=== PATIENT | female | born 1995 | race Caucasian/White ===

== ENCOUNTER 2019-01-31 13:41 | Emergency (ER) | payer MEDICAID ==
[~2019-01-31] VITALS: Ht 165.1 cm; Wt 85.7 kg
--- NOTE | 2019-01-31 14:03 | NUR ---
PT AMBULATED TO BED 12.
[2019-01-31 14:05] VITALS: BP 112/81
--- NOTE | 2019-01-31 14:05 | NUR ---
PT C/O HAVING ITCHY RASH FOR ONE MONTH. THE RASH STARTED ON HER THIGHS BILATERAL, AND RADIATING TO ABDOMEN, LEGS, AND FEET. ERYTHMATOUS RASH/HIVES NOTICED ON PT'S LEGS BILATERAL. DENIES ANY PAIN AT THIS TIME. PT DENIES HAVING ALLERGIES TO ANY MEDS OR FOOD. REPORTS FEVER AND HEADACHE LAST NIGHT, AFEBRILE NOW. PATIENT STATES PAIN OF 0/10 AT THIS TIME; VSS; PATIENT POSITIONED FOR COMFORT; HOB ELEVATED; BEDRAILS UP X1; BED DOWN. ER MD MADE AWARE OF PT STATUS.
[2019-01-31] MEDS ORDERED: methylPREDNISolone SS 125 MG in WATER STERILE 2 ML IM ONE (14:45)
[2019-01-31] MEDS ORDERED: diphenhydrAMINE 50 MG/ML VIAL IM ONE (14:45)
--- NOTE | 2019-01-31 15:36 | NUR ---
PT STATES FEELING BETTER. NO ITCHY AT THIS TIME.
[2019-01-31 15:53] VITALS: BP 114/80
--- NOTE | 2019-01-31 15:53 | NUR ---
Patient discharged with v/s stable by Dr. Caldera. Rx of Prednisone and Veena given.
== END 2019-01-31 15:53 | disposition home or self-care (01) ==
LOC: MED 13:41
DX: L50.9 Urticaria, unspecified (principal)
CPT/HCPCS: 96372; 99283; J1200; J2930

== ENCOUNTER 2019-03-11 20:51 | Emergency (ER) | payer MEDICAID ==
[2019-03-11] MEDS ORDERED: IBUPROFEN 800 MG TAB ONE (22:49)
== END 2019-03-11 22:55 | disposition home or self-care (01) ==
LOC: MED 20:51
DX: N92.0 Excessive and frequent menstruation with regular cycle (principal); N94.6 Dysmenorrhea, unspecified; Z30.432 Encounter for removal of intrauterine contraceptive device
CPT/HCPCS: 58301; 99283; 99284

== ENCOUNTER 2019-05-13 11:32 | Emergency (ER) | payer MEDICAID ==
[~2019-05-13] VITALS: Ht 165.1 cm; Wt 85.3 kg
[2019-05-13 11:33] VITALS: BP 120/70
--- NOTE | 2019-05-13 11:44 | NUR ---
TRIAGE COMPLETE. VSS. RETURNED TO LOBBY AWAITNG BED IN ED.
--- NOTE | 2019-05-13 12:17 | NUR ---
PT NKA. 24 Y/O F C/C LOOSE STOOLS/HEADACHE X6 DAYS, PT HAS ALSO NOTICED RECTAL BLEEDING X3 DAYS. PT NOT UP TO DATE WITH FLU SHOT; NO ONE SICK AT HOME. HX ULCERATIVE COLITIS. NO RX. NO PAIN. BOWEL SOUNDS NORMOACTIVE. PT COMPLAINTS OF DISCOMFORT ON RUQ/RLQ. SIDE RAIL X1. FAMILY AT BEDSIDE.
--- NOTE | 2019-05-13 12:30 | NUR ---
FLU SWAP OBTAINED GIVEN TO LAB
[2019-05-13] MEDS ORDERED: ONDANSETRON 4 MG/2 ML VIAL IVP ONE (12:35)
[2019-05-13] MEDS ORDERED: NACL 0.9% 1,000 ML IV ONE (12:35)
[2019-05-13] MEDS ORDERED: methylPREDNISolone SS 125 MG/2 ML VIAL IVP ONE (12:35)
[2019-05-13] MEDS ORDERED: LOPERAMIDE 2 MG CAP PO ONE (12:35)
[2019-05-13 12:45] LABS: BASOPHILS # (AUTO) 0.1 K/uL (0.00-0.22); EOSINOPHILS # (AUTO) 0.6 K/uL (0-0.4); EOSINOPHILS % (AUTO) 7.3 % (0.0-4.0); LYMPHOCYTES % (AUTO) 25.7 % (20.5-51.1); MEAN CORPUSCULAR HEMOGLOBIN 20 pg (27-31); MEAN CORPUSCULAR HGB CONC 30 g/dL (33-37); MEAN CORPUSCULAR VOLUME 67.5 fL (80-94); MONOCYTES # (AUTO) 0.8 K/uL (0.8-1.0); MONOCYTES % (AUTO) 10.3 % (1.7-9.3); NEUTROPHILS # (AUTO) 4.4 K/uL (1.8-7.7); NEUTROPHILS % (AUTO) 55.7 % (42.2-75.2); PLATELET COUNT (AUTO) 399 K/uL (140-450); RED CELL DISTRIBUTION WIDTH 18.6 % (11.6-13.7); WHITE BLOOD COUNT (AUTO) 7.9 K/uL (4.8-10.8)
[2019-05-13 12:54] LABS: ANION GAP 14.1 (8-16); CARBON DIOXIDE 24.1 mmol/L (21-32); CREATININE 0.8 mg/dL (0.6-1.3); POTASSIUM 3.2 mmol/L (3.5-5.1)
[2019-05-13 12:59] LABS: ALBUMIN 3.3 g/dL (3.4-5.0); TOTAL BILIRUBIN 0.2 mg/dL (0.0-1.0)
[2019-05-13] MEDS ORDERED: POTASSIUM CHLORIDE 10 MEQ TABER PO ONE (13:15)
--- NOTE | 2019-05-13 13:19 | NUR ---
PT TAKEN TO XRAY VIA WHEELCHAIR
--- NOTE | 2019-05-13 14:12 | NUR ---
PT RESTING COMFORTABLY, VSS. PT STATES NAUSEA AND DIARRHEA ARE GONE AFTER MEDICATIONS. NACL RUNNING W/O DIFFICULTIES IN THE IV 22 G RT WRIST. IV SITE CLEAN, DRY INTACT. DAUGHTER AT BEDSIDE.
[2019-05-13 14:47] VITALS: BP 122/72
== END 2019-05-13 14:44 | disposition home or self-care (01) ==
LOC: MED 11:32
DX: K51.90 Ulcerative colitis, unspecified, without complications (principal); R11.2 Nausea with vomiting, unspecified; R19.7 Diarrhea, unspecified; R51 Headache
CPT/HCPCS: 36415; 74176; 80053; 81025; 85025; 87804; 96361; 96374; 96375; 99284; J2405; J2930; J7030

== ENCOUNTER 2019-08-07 15:23 | Inpatient (IN) | payer MEDICAID ==
[~2019-08-07] VITALS: Ht 165.1 cm; Wt 82.6 kg
[2019-08-07 15:43] VITALS: BP 105/59
[2019-08-07 16:30] LABS: BASOPHILS # (AUTO) 0.1 K/uL (0.00-0.22); BASOPHILS % (AUTO) 0.6 % (0.0-2.0); EOSINOPHILS # (AUTO) 0.4 K/uL (0-0.4); EOSINOPHILS % (AUTO) 4.3 % (0.0-4.0); HEMATOCRIT 22.6 % (36-48); LYMPHOCYTES # (AUTO) 1.5 K/uL (2.5-16.5); LYMPHOCYTES % (AUTO) 16.3 % (20.5-51.1); MEAN CORPUSCULAR HEMOGLOBIN 18 pg (27-31); MEAN CORPUSCULAR HGB CONC 29 g/dL (33-37); MEAN CORPUSCULAR VOLUME 62.5 fL (80-94); MONOCYTES # (AUTO) 0.2 K/uL (0.8-1.0); MONOCYTES % (AUTO) 1.9 % (1.7-9.3); NEUTROPHILS % (AUTO) 76.9 % (42.2-75.2); PLATELET COUNT (AUTO) 428 K/uL (140-450); RED BLOOD CELL COUNT(AUTO) 3.62 MIL/uL (4.20-5.40); RED CELL DISTRIBUTION WIDTH 19.9 % (11.6-13.7); WHITE BLOOD COUNT (AUTO) 9.1 K/uL (4.8-10.8)
[2019-08-07 16:42] LABS: ALBUMIN 3.5 g/dL (3.4-5.0); ANION GAP 13.8 (8-16); CARBON DIOXIDE 24.4 mmol/L (21-32); CREATININE 0.9 mg/dL (0.6-1.3); POTASSIUM 4.2 mmol/L (3.5-5.1); TOTAL BILIRUBIN 0.2 mg/dL (0.0-1.0)
[2019-08-07 17:04] LABS: HEMOGLOBIN 6.5 g/dL (12.0-16.0)
[2019-08-07] MEDS ORDERED: MECO10005 PO (17:37)
[2019-08-07] MEDS ORDERED: OMEP20TC12 PO (17:37)
[2019-08-07] MEDS ORDERED: CETI10TA71 PO (17:38)
[2019-08-07] MEDS ORDERED: FERR-252 PO (17:38)
[2019-08-07] MEDS ORDERED: ONDANSETRON 4 MG/2 ML VIAL IVP PRN (19:00)
[2019-08-07] MEDS ORDERED: ACETAMINOPHEN 325 MG TAB PO PRN (19:00)
[2019-08-07] MEDS ORDERED: HYDROcodone/APAP 7.5/325 MG 1 TAB PO PRN (19:00)
[2019-08-07] MEDS ORDERED: SODIUM FERRIC GLUCONATE 125 MG in NACL 0.9% 100 ML IV SCH (19:05)
[2019-08-07 19:29] LABS: APPEARANCE,URINE CLEAR (CLEAR); BILIRUBIN,URINE NEGATIVE (NEGATIVE); BLOOD, URINE NEGATIVE (NEGATIVE); COLOR,URINE YELLOW (YELLOW); LEUKOCYTE ESTERASE ,URINE NEGATIVE (NEGATIVE); NITRITE, URINE NEGATIVE (NEGATIVE); PH,URINE 5.5 (5.0-9.0); UGLUCOSE NEGATIVE (NEGATIVE)
[2019-08-07 19:37] LABS: BARBITURATE, URINE NEGATIVE ng/ml (NEG <=200); BENZODIAZEPINE, URINE POSITIVE ng/mL (NEG <=200); CANNABINOID, URINE NEGATIVE ng/mL (NEG <=50); COCAINE, URINE NEGATIVE ng/mL (NEG <=300); OPIATE, URINE NEGATIVE ng/mL (NEG <=2000); PHENCYCLIDINE SCREEN,URINE NEGATIVE ng/mL (NEG <=25)
[2019-08-07 19:45] LABS: CHOL/HDL RATIO 3.7 (1-4.5); FREE T4 (FREE THYROXINE) 1.04 ng/dL (0.76-1.46); MAGNESIUM 2.3 mg/dL (1.8-2.4); THYROID STIMULATING HORMONE 0.7 uIU/mL (0.34-3.74)
[2019-08-07] MEDS: NACL 0.9% 1,000 ML IV SCH (21:20)
[2019-08-07] MEDS ORDERED: SODIUM FERRIC GLUCONATE 12.5 MG/ML AMP IV ONE (21:28)
[2019-08-07 22:03] LABS: BASOPHILS % (AUTO) 0.3 % (0.0-2.0); HEMATOCRIT 25.8 % (36-48); HEMOGLOBIN 7.6 g/dL (12.0-16.0); LYMPHOCYTES # (AUTO) 1.5 K/uL (2.5-16.5); LYMPHOCYTES % (AUTO) 21.6 % (20.5-51.1); MEAN CORPUSCULAR HEMOGLOBIN 19 pg (27-31); MEAN CORPUSCULAR HGB CONC 30 g/dL (33-37); MEAN CORPUSCULAR VOLUME 64.7 fL (80-94); MONOCYTES # (AUTO) 0.1 K/uL (0.8-1.0); MONOCYTES % (AUTO) 1.4 % (1.7-9.3); NEUTROPHILS # (AUTO) 5.4 K/uL (1.8-7.7); NEUTROPHILS % (AUTO) 76.7 % (42.2-75.2); PLATELET COUNT (AUTO) 387 K/uL (140-450); RED BLOOD CELL COUNT(AUTO) 3.99 MIL/uL (4.20-5.40)
[2019-08-07] MEDS: DOCUSATE SODIUM 100 MG GELCAP PO SCH (22:23)
[2019-08-08 04:00] VITALS: BP 90/45
[2019-08-08] MEDS ORDERED: NACL 0.9% 500 ML IV ONE (06:40)
[2019-08-08 07:34] LABS: MAGNESIUM 2.5 mg/dL (1.8-2.4); PHOSPHORUS 3.6 mg/dL (2.5-4.9)
[2019-08-08 07:35] LABS: ANION GAP 12.8 (8-16); CARBON DIOXIDE 24.8 mmol/L (21-32); CREATININE 0.7 mg/dL (0.6-1.3); POTASSIUM 3.6 mmol/L (3.5-5.1)
[2019-08-08 07:41] LABS: BASOPHILS % (AUTO) 0.2 % (0.0-2.0); EOSINOPHILS % (AUTO) 0.1 % (0.0-4.0); HEMATOCRIT 25.2 % (36-48); HEMOGLOBIN 7.5 g/dL (12.0-16.0); LYMPHOCYTES % (AUTO) 24.1 % (20.5-51.1); MEAN CORPUSCULAR HEMOGLOBIN 19 pg (27-31); MEAN CORPUSCULAR HGB CONC 30 g/dL (33-37); MEAN CORPUSCULAR VOLUME 64.5 fL (80-94); MONOCYTES # (AUTO) 0.9 K/uL (0.8-1.0); MONOCYTES % (AUTO) 10.5 % (1.7-9.3); NEUTROPHILS # (AUTO) 5.4 K/uL (1.8-7.7); NEUTROPHILS % (AUTO) 65.1 % (42.2-75.2); PLATELET COUNT (AUTO) 391 K/uL (140-450); RED BLOOD CELL COUNT(AUTO) 3.91 MIL/uL (4.20-5.40); RED CELL DISTRIBUTION WIDTH 20.5 % (11.6-13.7); WHITE BLOOD COUNT (AUTO) 8.3 K/uL (4.8-10.8)
[2019-08-08 08:00] VITALS: BP 96/59
[2019-08-08] MEDS: DOCUSATE SODIUM 100 MG GELCAP PO SCH (08:16)
[2019-08-08] MEDS ORDERED: SODIUM FERRIC GLUCONATE 125 MG in NACL 0.9% 100 ML IV ONE (09:50)
[2019-08-08] MEDS: NACL 0.9% 1,000 ML IV SCH (10:12)
[2019-08-08] MEDS ORDERED: MESALAMINE 250 MG CAPER PO SCH (11:30)
[2019-08-08 12:00] VITALS: BP 97/54
[2019-08-08] MEDS ORDERED: MAGNESIUM CITRATE 300 ML BTL PO SCH (12:10)
[2019-08-08] MEDS ORDERED: BOWEL EVACUANT DRINK 4,000 ML PDS PO SCH (12:30)
[2019-08-09 09:06] LABS: FOLIC ACID 5.2 ng/mL (>3.0)
== END 2019-08-08 19:10 | disposition left against medical advice (07) | DRG 663 ==
LOC: MED 15:23 → INTOOBSV 19:02 → MTU 19:02 → OBSVTOIN 08-08 12:11
PROVIDERS: ADMIT General Practice; ATTEND General Practice
PROC: 30233N1 Transfusion of Nonautologous Red Blood Cells into Peripheral Vein, Percutaneous Approach (ICD-10-PCS; principal; 2019-08-08)
DX: D50.9 Iron deficiency anemia, unspecified (principal); F13.20 Sedative, hypnotic or anxiolytic dependence, uncomplicated; K51.90 Ulcerative colitis, unspecified, without complications; E66.9 Obesity, unspecified; Z53.29 Procedure and treatment not carried out because of patient's decision for other reasons; Z79.899 Other long term (current) drug therapy; Z68.30 Body mass index [BMI] 30.0-30.9, adult
CPT/HCPCS: 99285; G0378; 36415; 80048; 80053; 80305; 81003; 82150; 82272; 82607; 82728; 82746; 83036; 83540; 83625; 83690; 83735; 84100; 84439; 84443; 84703; 85025; 85045; 85610; 85730; 86886; 86900; 86901; 86920; 87070; 87081; J2405; J2916; J7030; P9016

== ENCOUNTER 2021-04-13 14:13 | Emergency (ER) | payer MEDICAID ==
[~2021-04-13] VITALS: Ht 165.1 cm; Wt 90.7 kg
[~2021-04-13 14:13] MED LIST: CETI10TA71 PO; FERR-252 PO; MECO10005 PO; OMEP-278 PO
[2021-04-13 14:21] VITALS: BP 107/78
--- NOTE | 2021-04-13 14:25 | NUR ---
PATIENT W/C ASSITED TO BED 11.
--- NOTE | 2021-04-13 14:33 | NUR ---
PA ALYSSA BEDSIDE EVALUATING PT
--- NOTE | 2021-04-13 14:38 | NUR ---
26 Y FEMALE FROM HOME WITH C/O INTERMITENT GRACE LOWER ABD PAIN, N/V/D X 2 WEEKS. PT STATED SHE IS EXPERINCING A FLARE UP FROM HER UC AND HAS HAD NON-STOP N/V/D X2 WEEKS. PT IS ABLE TO STILL EAT AND DRINK FOOD NORMALLY AT THIS TIME. PT STATED SHE IS STARTING TO EXPERINCE GENERAL WEAKNESS/FATIGUE THIS AM THAT HAS PROGRESSIVELY GOTTEN WORSE. ABDOMEN IS NON-TENDER TO TOUCH, BUT CRAMPING LIKE PAIN IS FELT IN THE LOWER ABDOMEN THAT IS 8/10. LAST BM WAS TODAY AND WAS DIARRHEA PMH: ULCERATIVE COLITIS NKA
[2021-04-13] MEDS ORDERED: ONDANSETRON 4 MG/2 ML VIAL ONE (14:39)
[2021-04-13] MEDS ORDERED: ONDANSETRON 4 MG/2 ML VIAL IVP ONE (14:40)
[2021-04-13] MEDS ORDERED: LOPERAMIDE 2 MG CAP PO ONE (14:40)
[2021-04-13] MEDS ORDERED: NACL 0.9% 1,000 ML IV ONE (14:40)
--- NOTE | 2021-04-13 14:49 | NUR ---
22 G IV ESTABLISHED IN R HAND. BLOOD WORK COLLECTED FROM IV AND WALKED TO LAB
[2021-04-13 14:58] LABS: BASOPHILS % (AUTO) 0.2 % (0.0-2.0); EOSINOPHILS # (AUTO) 0.6 K/uL (0-0.4); EOSINOPHILS % (AUTO) 4.9 % (0.0-4.0); HEMATOCRIT 42.2 % (36-48); HEMOGLOBIN 14.5 g/dL (12.0-16.0); LYMPHOCYTES # (AUTO) 2.6 K/uL (2.5-16.5); LYMPHOCYTES % (AUTO) 20.3 % (20.5-51.1); MEAN CORPUSCULAR HEMOGLOBIN 30 pg (27-31); MEAN CORPUSCULAR HGB CONC 34 g/dL (33-37); MONOCYTES # (AUTO) 0.9 K/uL (0.8-1.0); MONOCYTES % (AUTO) 7.2 % (1.7-9.3); NEUTROPHILS # (AUTO) 8.6 K/uL (1.8-7.7); NEUTROPHILS % (AUTO) 67.4 % (42.2-75.2); PLATELET COUNT (AUTO) 345 K/uL (140-450); RED BLOOD CELL COUNT(AUTO) 4.79 MIL/uL (4.20-5.40); RED CELL DISTRIBUTION WIDTH 12.8 % (11.6-13.7); WHITE BLOOD COUNT (AUTO) 12.7 K/uL (4.8-10.8)
[2021-04-13 15:19] LABS: ALBUMIN 3.2 g/dL (3.4-5.0); ANION GAP 18.1 (8-16); CARBON DIOXIDE 21.6 mmol/L (21-32); CREATININE 0.7 mg/dL (0.6-1.3); TOTAL BILIRUBIN 0.6 mg/dL (0.0-1.0)
[2021-04-13 15:20] LABS: POTASSIUM 3.7 mmol/L (3.5-5.1)
[2021-04-13] MEDS ORDERED: LOPE1TAB14 PO (16:18)
[2021-04-13] MEDS ORDERED: ONDA-188 SL (16:18)
[2021-04-13] MEDS ORDERED: PRED20TA5 PO (16:18)
--- NOTE | 2021-04-13 16:43 | NUR ---
pt provided with update on current patient status
[2021-04-13 16:52] VITALS: BP 95/64
--- NOTE | 2021-04-13 16:52 | NUR ---
Patient discharged with v/s stable. Written and verbal after care instructions given and explained. Patient alert, oriented and verbalized understanding of instructions. Wheel Chair Assisted with to car. All questions addressed prior to discharge. ID band removed. Patient advised to follow up with PMD. Rx of PREDNISONE, ZOFRAN, AND IMODIUM given. Patient educated on indication of medication including possible reaction and side effects. Opportunity to ask questions provided and answered.
== END 2021-04-13 16:52 | disposition home or self-care (01) ==
LOC: MED 14:13
DX: K51.90 Ulcerative colitis, unspecified, without complications (principal)
CPT/HCPCS: 36415; 80053; 81002; 81025; 83690; 85025; 96361; 96374; 99283; J2405; J7030

== ENCOUNTER 2021-04-26 19:28 | Emergency (ER) | payer MEDICAID ==
[~2021-04-26] VITALS: Ht 165.1 cm; Wt 86.2 kg
[~2021-04-26 19:28] MED LIST changes: +LOPE1TAB14 PO; +ONDA-188 SL; +PRED20TA5 PO
[2021-04-26 20:00] VITALS: BP 104/68
--- NOTE | 2021-04-26 20:03 | NUR ---
TO LOBBY A/W BED VIA W/C
[2021-04-26] MEDS ORDERED: PANTOPRAZOLE 40 MG INJ VIAL IVP ONE (23:00)
[2021-04-26] MEDS ORDERED: ONDANSETRON 4 MG/2 ML VIAL IVP ONE (23:00)
[2021-04-26] MEDS ORDERED: MORPHINE SULFATE 4 MG/ML SYR IVP ONE (23:00)
[2021-04-26] MEDS ORDERED: NACL 0.9% 1,000 ML IV SCH (23:00)
[2021-04-26 23:28] LABS: BASOPHILS # (AUTO) 0.1 K/uL (0.00-0.22); BASOPHILS % (AUTO) 0.4 % (0.0-2.0); EOSINOPHILS # (AUTO) 0.3 K/uL (0-0.4); EOSINOPHILS % (AUTO) 2.2 % (0.0-4.0); HEMATOCRIT 38.4 % (36-48); HEMOGLOBIN 13.1 g/dL (12.0-16.0); LYMPHOCYTES # (AUTO) 2.2 K/uL (2.5-16.5); LYMPHOCYTES % (AUTO) 16.5 % (20.5-51.1); MEAN CORPUSCULAR HEMOGLOBIN 30 pg (27-31); MEAN CORPUSCULAR HGB CONC 34 g/dL (33-37); MEAN CORPUSCULAR VOLUME 88.8 fL (80-94); MONOCYTES # (AUTO) 0.6 K/uL (0.8-1.0); MONOCYTES % (AUTO) 4.2 % (1.7-9.3); NEUTROPHILS # (AUTO) 10.3 K/uL (1.8-7.7); NEUTROPHILS % (AUTO) 76.7 % (42.2-75.2); PLATELET COUNT (AUTO) 470 K/uL (140-450); RED BLOOD CELL COUNT(AUTO) 4.33 MIL/uL (4.20-5.40); RED CELL DISTRIBUTION WIDTH 13.2 % (11.6-13.7); WHITE BLOOD COUNT (AUTO) 13.4 K/uL (4.8-10.8)
[2021-04-26 23:38] LABS: ALBUMIN 2.7 g/dL (3.4-5.0); ANION GAP 12.5 (8-16); CARBON DIOXIDE 25.5 mmol/L (21-32); TOTAL BILIRUBIN 0.3 mg/dL (0.0-1.0)
[2021-04-26] MEDS ORDERED: NACL 0.9% 1,000 ML IV ONE (23:50)
[2021-04-26] MEDS ORDERED: ALBUMIN HUMAN 25% 50 ML IV ONE (23:50)
[2021-04-26] MEDS ORDERED: POTASSIUM CHLORIDE 20% 40 MEQ/15 ML UDC PO ONE (23:50)
[2021-04-27] MEDS ORDERED: MORPHINE SULFATE 4 MG/ML SYR ONE (00:13)
[2021-04-27] MEDS ORDERED: PANTOPRAZOLE 40 MG INJ VIAL ONE (00:15)
[2021-04-27] MEDS ORDERED: ONDANSETRON 4 MG/2 ML VIAL ONE ×2 (00:16→03:29)
--- NOTE | 2021-04-27 01:40 | NUR ---
26 y/o F BIB WITH C/O ABD PAIN, NAUSEA, EMESIS, AND DIARRHEA. PT HAS HX OF ULCERATIVE COLITIS AND SAYS SHE HAD A FLARE UP ABOUT 4 WEEKS AGO. PT CAME HERE AND WAS D/C WITH A RX FOR PREDNISONE . PT RAN OUT OF MEDICATION AND FOLLOWED UP WITH PRIMARY DR. PRIMARY DOCTOR GAVE HER FLUIDS AND D/C. PT IS AGIN HERE TONIGHT WITH SEVER BLOODY DIARRHEA ABD PAIN 8/. PT STATES SHE HAS HAD UC SINCE 2011. PT IS GAURDING STOMACH AND UNABLE TO AMBULATE AT THIS TIME DUE TO PAIN. PT IS USING BED RAMIREZ AT THIS TIME. A&OX4. BOTH SIDE RAILS UP FOR PT SAFETY. MED HX: UC ALLERGIES:NKA
[2021-04-27] MEDS ORDERED: KCL 20 MEQ/WATER INJ PREMIX 100 ML IV ONE (01:55)
[2021-04-27] MEDS ORDERED: ONDANSETRON 4 MG/2 ML VIAL IVP ONE (02:25)
[2021-04-27] MEDS ORDERED: ONDA-188 SL (03:04)
[2021-04-27] MEDS ORDERED: PHE25S RC (03:04)
[2021-04-27] MEDS ORDERED: PRED20TA5 PO (03:04)
[2021-04-27] MEDS ORDERED: ACET-9527 PO ×2 (04:50→04:51)
[2021-04-27] MEDS ORDERED: HYDROcodone/APAP 5/325 MG 1 TAB TAB PO ONE (04:50)
[2021-04-27 07:20] VITALS: BP 100/62
--- NOTE | 2021-04-27 07:20 | NUR ---
Patient discharged with v/s stable. Written and verbal after care instructions given and explained. Patient alert, oriented and verbalized understanding of instructions. Ambulatory with steady gait. All questions addressed prior to discharge. ID band removed. Patient advised to follow up with PMD. Rx of zofan, phenergan, norco given. Patient educated on indication of medication including possible reaction and side effects. Opportunity to ask questions provided and answered.
== END 2021-04-27 07:20 | disposition home or self-care (01) ==
LOC: MED 19:28
DX: K51.90 Ulcerative colitis, unspecified, without complications (principal); Z79.899 Other long term (current) drug therapy; Z79.891 Long term (current) use of opiate analgesic
CPT/HCPCS: 80053; 83690; 84703; 85025; 96361; 96365; 96375; 96376; 99285; C9113; J2270; J2405; J3480; J7030; P9046